=== PATIENT | male | born 1980 | race Two or more races ===

== ENCOUNTER 2018-08-11 19:57 | Emergency (ER) | payer SELFPAY ==
[~2018-08-11] VITALS: Ht 167.6 cm; Wt 90.7 kg
[~2018-08-11 19:57] MED LIST: CLIN150C14 PO; HYDR-3164 PO
--- NOTE | 2018-08-11 20:25 | PHYS DOC ---
Past Medical History Past Medical History: No Pertinent History Past Surgical History: Other Additional Past Surgical Histo: LEFT WRIST Alcohol Use: Occasionally Drug Use: None Adult General Chief Complaint Chief Complaint: CHEST PAIN HPI HPI Patient is 37 yo male who presents with complaint of stabbing chest pain since 1729. He reports his truck broke down and he was walking when the chest pain suddenly began. He describes the pain as stabbing pain in the right of his chest , down his right arm, and up the r side of the neck. He has never had anything like this before and did not take any medication for the pain. He admits to feeling as though his heart is racing, but denies shortness of breath, recent cold sx, abdominal pain, nausea, vomiting, diarrhea, or pain w/ urination. Pain is not worsened by deep breath or movement. He reports having high blood pressure but is not on medication, does not have a PCP, and does not follow with a retail sales manager. He is unsure of family medical history however he does think an uncle had heart surgery at a young age. Patient transported himself to ED but reports his girlfriend is available to give him a ride home. Review of Systems Review of Systems Constitutional: Denies fever or chills [] Eyes: Denies change in visual acuity, redness, or eye pain [] HENT: Denies nasal congestion or sore throat [] Respiratory: Denies cough or shortness of breath [] Cardiovascular: Admits to stabbing right sided chest pain. GI: Denies abdominal pain, nausea, vomiting, bloody stools or diarrhea [] : Denies dysuria or hematuria [] Musculoskeletal: Admits to back pain Integument: Denies rash or skin lesions [] Neurologic: Denies headache, focal weakness or sensory changes [] Endocrine: Denies polyuria or polydipsia [] Complete systems were reviewed and found to be within normal limits, except as documented in this note. Current Medications Current Medications Current Medications Medications (Trade) Dose Ordered Sig/Colin Start Time Stop Time Status Last Admin Dose Admin Aspirin (Stephanie Aspirin) 325 mg 1X ONCE 08/11/18 20:30 08/11/18 20:31 DC 08/11/18 20:37 325 MG Fentanyl Citrate (Fentanyl 2ml Vial) 50 mcg 1X ONCE 08/11/18 21:00 08/11/18 21:01 DC 08/11/18 20:37 50 MCG Info (CONTRAST GIVEN -- Rx MONITORING) 1 each PRN DAILY PRN 08/11/18 21:00 08/11/18 23:16 DC Iohexol (Omnipaque 350 Mg/ml) 100 ml 1X ONCE 08/11/18 21:30 08/11/18 21:31 DC 08/11/18 21:08 100 ML Lorazepam (Ativan) 0.5 mg 1X ONCE 08/11/18 22:00 08/11/18 22:01 DC 08/11/18 21:42 0.5 MG Sodium Chloride 1,000 ml @ 1,000 mls/hr 1X ONCE 08/11/18 20:30 08/11/18 21:29 DC 08/11/18 20:37 1,000 MLS/HR Allergies Allergies Allergies Coded Allergies Type Severity Reaction Last Updated Verified No Known Drug Allergies 02/08/16 No Physical Exam Physical Exam Constitutional: Well developed, well nourished, no acute distress, non-toxic appearance, texting on phone [] HENT: Normocephalic, atraumatic, bilateral external ears normal, oropharynx moist, no oral exudates, nose normal. [] Eyes: EOMI, conjunctiva normal, no discharge. [] Neck: Normal range of motion, no tenderness, supple, no stridor. [] Cardiovascular:Heart rate regular rhythm, no murmur, chest nontender to palpation [] Lungs & Thorax: Bilateral breath sounds clear to auscultation [] Abdomen: Bowel sounds normal, soft, no tenderness, no masses, no pulsatile masses. [] Skin: Warm, dry, no erythema, no rash. Tattoos present bl forearms.[] Back: No tenderness Extremities: No tenderness, no cyanosis, no clubbing, ROM intact, no edema. Radial pulses 2/4 and equal. Neurologic: Alert and oriented X 3, normal motor function, normal sensory function, no focal deficits noted. [] Psychologic: Affect normal, judgement normal, mood normal. [] Current Patient Data Vital Signs Vital Signs Date Time Temp Pulse Resp B/P (MAP) Pulse Ox O2 Delivery O2 Flow Rate FiO2 08/11/18 22:37 81 18 140/65 (90) 100 Room Air 08/11/18 19:57 98.1 98.1 Lab Values Laboratory Tests Test 08/11/18 20:07 08/11/18 22:18 White Blood Count 10.3 x10^3/uL (4.0-11.0) Red Blood Count 5.16 x10^6/uL (4.30-5.70) Hemoglobin 15.8 g/dL (13.0-17.5) Hematocrit 44.6 % (39.0-53.0) Mean Corpuscular Volume 87 fL (79-100) Mean Corpuscular Hemoglobin 31 pg (25-35) Mean Corpuscular Hemoglobin Concent 36 g/dL (31-37) Red Cell Distribution Width 13.4 % (11.5-14.5) Platelet Count 260 x10^3/uL (140-400) Neutrophils (%) (Auto) 69 % (31-73) Lymphocytes (%) (Auto) 23 % (24-48) L Monocytes (%) (Auto) 7 % (0-9) Eosinophils (%) (Auto) 1 % (0-3) Basophils (%) (Auto) 1 % (0-3) Neutrophils # (Auto) 7.1 x10^3uL (1.8-7.7) Lymphocytes # (Auto) 2.3 x10^3/uL (1.0-4.8) Monocytes # (Auto) 0.7 x10^3/uL (0.0-1.1) Eosinophils # (Auto) 0.1 x10^3/uL (0.0-0.7) Basophils # (Auto) 0.1 x10^3/uL (0.0-0.2) Prothrombin Time 12.4 SEC (11.7-14.0) Prothrombin Time INR 1.0 (0.8-1.1) PTT 25 SEC (24-38) Sodium Level 142 mmol/L (136-145) Potassium Level 4.0 mmol/L (3.5-5.1) Chloride Level 105 mmol/L (98-107) Carbon Dioxide Level 29 mmol/L (21-32) Anion Gap 8 (6-14) Blood Urea Nitrogen 17 mg/dL (8-26) Creatinine 1.2 mg/dL (0.7-1.3) Estimated GFR (Cockcroft-Gault) 68.9 BUN/Creatinine Ratio 14 (6-20) Glucose Level 101 mg/dL (70-99) H Calcium Level 9.4 mg/dL (8.5-10.1) Magnesium Level 2.0 mg/dL (1.8-2.4) Total Bilirubin 0.2 mg/dL (0.2-1.0) Aspartate Amino Transferase (AST) 22 U/L (15-37) Alanine Aminotransferase (ALT) 31 U/L (16-63) Alkaline Phosphatase 65 U/L (46-116) Creatine Kinase 184 U/L (39-308) Creatine Kinase MB (Mass) 1.2 ng/mL (0.0-3.6) Creatine Kinase MB Relative Index 0.7 % (0-4) Troponin I Quantitative < 0.017 ng/mL (0.000-0.055) < 0.017 ng/mL (0.000-0.055) MN-Wig-P-Type Natriuretic Peptide 10 pg/mL (0-124) Total Protein 8.1 g/dL (6.4-8.2) Albumin 4.2 g/dL (3.4-5.0) Albumin/Globulin Ratio 1.1 (1.0-1.7) Lipase 321 U/L (73-393) Laboratory Tests 08/11/18 20:07 Laboratory Tests 08/11/18 20:07 EKG EKG [] Interpretation Time: @2006; HR 81 BPM, normal sinus rhythm. Radiology/Procedures Radiology/Procedures [] Impressions: PROCEDURE: CT ANGIOGRAPHY CHEST Exam performed: CT pulmonary angiogram of the chest with contrast. Date: 08/11/2018. Comparison: None available Indication: Pleuritic chest pain Technique: Contiguous helical acquisitions are obtained through the chest during intravenous administration of [ 100 ] cc of [ Omnipaque 350 ] . [Sagittal and coronal reformatted images and ] MIP images were obtained and reviewed Findings: The structures at the thoracic inlet including both lobes of the thyroid gland appear normal. Pulmonary arterial opacification is adequate to evaluate for pulmonary embolus. There is no evidence for pulmonary embolism. The heart is normal in size. No pericardial effusion is seen. No mediastinal or hilar lymphadenopathy is seen. No infiltrates or pleural effusions are seen. No pulmonary nodules are detected. Upper abdominal structures appear unremarkable. Osseous structures appear intact. Impression: 1. Study is negative for pulmonary embolism. No additional abnormality seen. PQRS Compliance Statement: One or more of the following individualized dose reduction techniques were utilized for this examination: 1. Automated exposure control 2. Adjustment of the mA and/or kV according to patient size 3. Use of iterative reconstruction technique Electronically signed by: Makeda Torres MD (08/11/2018 9:49 PM) [facility] Course & Med Decision Making Course & Med Decision Making Patient is 37 yo male smoker who presents with complaint of stabbing chest pain that began at 1730 while he was walking. He has been told he has high blood pressure but is not on medication and does not follow with any physicians. On physical exam he is resting comfortably in bed, afebrile, not tachycardic, but complaining of stabbing L sided chest pain. The rest of physical exam was unremarkable. Labs were WNL, including negative initial troponin. EKG NSR at 81 bpm. Patient administered aspirin and fentanyl for chest pain with moderate symptomatic relief. CT angio negative for PE. Following CT patient 's girlfriend arrived and was crying in the room at bedside. Around the same time, patient reported he was very cold, began shaking, and HR became elevated. He denied trouble breathing or skin irritation. Patient was administered ativan with complete cessation of symptoms and HR returned to 80s. Although it is possible the patient had a reaction to the dye, we feel the patient had Dragon Disclaimer Dragon Disclaimer This electronic medical record was generated, in whole or in part, using a voice recognition dictation system. Departure Departure Impression: Primary Impression: Chest pain Disposition: HOME, SELF-CARE Condition: STABLE Referrals: NO PCP (PCP) MADINA BELTRAN MD Patient Instructions: Chest Pain (Nonspecific), [id number] Problem Qualifiers Primary Impression: Chest pain Chest pain type: unspecified Qualified Codes: R07.9 - Chest pain, unspecified MINH FLORES DO Aug 11, 2018 20:25
[2018-08-11 20:26] LABS: BASO # 0.1 x10^3/uL (0.0-0.2); BASO % 1 % (0-3); EOS # 0.1 x10^3/uL (0.0-0.7); EOS % 1 % (0-3); HEMATOCRIT 44.6 % (39.0-53.0); HEMOGLOBIN 15.8 g/dL (13.0-17.5); LYMPH # 2.3 x10^3/uL (1.0-4.8); LYMPH % 23 % (24-48); MEAN CORPUSCULAR HEMOGLOBIN 31 pg (25-35); MEAN CORPUSCULAR HGB CONC 36 g/dL (31-37); MEAN CORPUSCULAR VOLUME 87 fL (79-100); MONO # 0.7 x10^3/uL (0.0-1.1); MONO % 7 % (0-9); NEUT # 7.1 x10^3uL (1.8-7.7); NEUT % 69 % (31-73); PLATELET COUNT 260 x10^3/uL (140-400); RED BLOOD COUNT 5.16 x10^6/uL (4.30-5.70); RED CELL DISTRIBUTION WIDTH 13.4 % (11.5-14.5); WHITE BLOOD COUNT 10.3 x10^3/uL (4.0-11.0)
[2018-08-11] MEDS ORDERED: IV NORMAL SALINE 1000ML BAG 1,000 ML IV ONE (20:30)
[2018-08-11] MEDS ORDERED: ASPIRIN 325 MG TABLET PO ONE (20:30)
[2018-08-11 20:37] LABS: PROTHROMBIN TIME PATIENT 12.4 SEC (11.7-14.0)
[2018-08-11 20:38] LABS: CALCIUM 9.4 mg/dL (8.5-10.1); CREATININE 1.2 mg/dL (0.7-1.3); GFR 68.9
[2018-08-11 20:48] LABS: ALBUMIN 4.2 g/dL (3.4-5.0); ALBUMIN/GLOBULIN RATIO 1.1 (1.0-1.7); TOTAL BILIRUBIN 0.2 mg/dL (0.2-1.0); TOTAL PROTEIN 8.1 g/dL (6.4-8.2)
[2018-08-11] MEDS ORDERED: CONTRAST GIVEN. MC PRN (21:00)
[2018-08-11] MEDS ORDERED: fentaNYL PF VIAL 100 MCG/2 ML VIAL IV ONE (21:00)
[2018-08-11] MEDS ORDERED: IOHEXOL 350 MG/ML 100 ML VIAL. IV ONE (21:30)
--- NOTE | 2018-08-11 21:53 | RAD ---
Exam performed: CT pulmonary angiogram of the chest with contrast. Date: 08/11/2018. Comparison: None available Indication: Pleuritic chest pain Technique: Contiguous helical acquisitions are obtained through the chest during intravenous administration of [ 100 ] cc of [ Omnipaque 350 ] . [Sagittal and coronal reformatted images and ] MIP images were obtained and reviewed Findings: The structures at the thoracic inlet including both lobes of the thyroid gland appear normal. Pulmonary arterial opacification is adequate to evaluate for pulmonary embolus. There is no evidence for pulmonary embolism. The heart is normal in size. No pericardial effusion is seen. No mediastinal or hilar lymphadenopathy is seen. No infiltrates or pleural effusions are seen. No pulmonary nodules are detected. Upper abdominal structures appear unremarkable. Osseous structures appear intact. Impression: 1. Study is negative for pulmonary embolism. No additional abnormality seen. PQRS Compliance Statement: One or more of the following individualized dose reduction techniques were utilized for this examination: 1. Automated exposure control 2. Adjustment of the mA and/or kV according to patient size 3. Use of iterative reconstruction technique Electronically signed by: Makeda Torres MD (08/11/2018 9:49 PM) [facility]
[2018-08-11 22:37] VITALS: BP 140/65
--- NOTE | 2018-08-12 07:12 | EKG ---
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
== END 2018-08-11 23:08 | disposition home or self-care (01) ==
LOC: ER 19:57
DX: R07.89 Other chest pain (principal); R03.0 Elevated blood-pressure reading, without diagnosis of hypertension; M54.9 Dorsalgia, unspecified
CPT/HCPCS: 36415; 71275; 80053; 82553; 83690; 83735; 83880; 84484; 85025; 85610; 85730; 93005; 96374; 96375; 99284; J2060; J3010; J7030; Q9967

== ENCOUNTER 2019-11-08 13:35 | Emergency (ER) | payer SELFPAY ==
[~2019-11-08] VITALS: Ht 167.6 cm; Wt 89.5 kg
--- NOTE | 2019-11-08 14:38 | RAD ---
EXAM: Chest, single view. HISTORY: Cough. COMPARISON: 08/11/2018 FINDINGS: A frontal view of the chest is obtained. There is no infiltrate, pleural effusion or pneumothorax. The heart is normal in size. IMPRESSION: No acute pulmonary finding. Electronically signed by: Nicolette Sauer MD (11/08/2019 2:35 PM) [id number]
[2019-11-08 15:18] VITALS: BP 150/92
--- NOTE | 2019-11-08 15:56 | PHYS DOC ---
Past Medical History Past Medical History: Anxiety, Hypertension Past Surgical History: Other Additional Past Surgical Histo: LEFT WRIST Smoking Status: Current Every Day Smoker Alcohol Use: Occasionally Drug Use: None General Adult EDM: Chief Complaint: COUGH HPI: HPI: Patient is a 39 year old male presents to ER today for evaluation of cough and fever. Patient said he was in [place], at a gas station when another person cough on his face. Patient said he intermittently felt sick so he turned around low back home to [facility]. Since he has been having body aches fever and chill, cough so he came here for evaluation. Patient denies any chest pain, no abdominal pain, no trouble breathing, no headache. Patient denies any been exposed to anybody who tested positive for COVID-19. Review of Systems: Review of Systems: Constitutional: Positive for fever or chills. [] Eyes: Denies change in visual acuity. [] HENT: Denies nasal congestion or sore throat. [] Respiratory: Positive for cough, NO shortness of breath. [] Cardiovascular: Denies chest pain or edema. [] GI: Denies abdominal pain, nausea, vomiting, bloody stools or diarrhea. [] : Denies dysuria. [] Musculoskeletal: Denies back pain or joint pain. [] Integument: Denies rash. [] Neurologic: Denies headache, focal weakness or sensory changes. [] Endocrine: Denies polyuria or polydipsia. [] Lymphatic: Denies swollen glands. [] Psychiatric: Denies depression or anxiety. [] Heart Score: Risk Factors: Risk Factors: DM, Current or recent (<one month) smoker, HTN, HLP, family history of CAD, obesity. Risk Scores: Score 0 - 3: 2.5% MACE over next 6 weeks - Discharge Home Score 4 - 6: 20.3% MACE over next 6 weeks - Admit for Clinical Observation Score 7 - 10: 72.7% MACE over next 6 weeks - Early Invasive Strategies Allergies: Allergies: Allergies Coded Allergies Type Severity Reaction Last Updated Verified No Known Drug Allergies 02/08/16 No Physical Exam: PE: Constitutional: Well developed, well nourished, no acute distress, non-toxic appearance. [] HENT: Normocephalic, atraumatic, bilateral external ears normal, oropharynx moist, no oral exudates, nose normal. [] Eyes: PERRLA, EOMI, conjunctiva normal, no discharge. [] Neck: Normal range of motion, no tenderness, supple, no stridor. [] Cardiovascular:Heart rate regular rhythm, no murmur [] Lungs & Thorax: Bilateral breath sounds clear to auscultation [] Abdomen: Bowel sounds normal, soft, no tenderness, no masses, no pulsatile masses. [] Skin: Warm, dry, no erythema, no rash. [] Back: No tenderness, no CVA tenderness. [] Extremities: No tenderness, no cyanosis, no clubbing, ROM intact, no edema. [] Neurologic: Alert and oriented X 3, normal motor function, normal sensory function, no focal deficits noted. [] Psychologic: Affect normal, judgement normal, mood normal. [] Current Patient Data: Vital Signs: Vital Signs Date Time Temp Pulse Resp B/P (MAP) Pulse Ox O2 Delivery O2 Flow Rate FiO2 11/08/19 14:33 98.7 79 18 144/79 (100) 97 Room Air 98.7 EKG: EKG: EKG was done at 1424, heart rate of 75 beats per minute, normal sinus rhythm, no STEMI. [] Radiology/Procedures: Radiology/Procedures: [][facility] [address] [place], [place] [id number] IMAGING REPORT Signed PATIENT: ROEL TALLEYACCOUNT: [id number] : 1980 LOCATION: ER AGE: 39 SEX: M EXAM STATUS: REG ER ORD. PHYSICIAN: TJ TAN DO REASON: COUGH, SOA PROCEDURE: CHEST AP ONLY EXAM: Chest, single view. HISTORY: Cough. COMPARISON: 08/11/2018 FINDINGS: A frontal view of the chest is obtained. There is no infiltrate, pleural effusion or pneumothorax. The heart is normal in size. IMPRESSION: No acute pulmonary finding. Electronically signed by: Nicolette Sauer MD (11/08/2019 2:35 PM) [id number] DICTATED and SIGNED BY: NICOLETTE SAUER MD DATE: 11/08/19 1435 Course & Med Decision Making: Course & Med Decision Making COVID-19 CRITERIA: The patient was evaluated during the global COVID-19 pandemic, and that diagnosis was suspected/considered upon their initial presentation. Their evaluation, treatment and testing was consistent with current guidelines for patients who present with complaints or symptoms that may be related to COVID-19. Pertinent Labs and Imaging studies reviewed. (See chart for details) Patient is a 39-year-old male who was evaluated in the ER for upper restaurant infection, he worried about the exposure to the new coronavirus however he has no fever, chest x-ray normal his vitals are normal, he does not meet criteria to be tested at this time. Patient can be follow-up with hIS family doctor for outpatient evaluation and treatment. Dragon Disclaimer: Dragon Disclaimer: This electronic medical record was generated, in whole or in part, using a voice recognition dictation system. Departure Departure Impression: Primary Impression: Viral syndrome Disposition: 01 HOME, SELF-CARE Condition: STABLE Referrals: NO PCP (PCP) follow up with your doctor as needed Patient Instructions: Viral Syndrome Additional Instructions: Thank you for visiting [facility]. We appreciate you trusting us with your care. If any additional problems come up please don't hesitate to return to visit us. Follow up with your primary care provider so they can plan additional care if needed and know about the problem that you had today. If symptoms worsen come back to the Emergency Department. Any concerning symptoms that start such as chest pain, shortness of air, weakness or numbness on one si de of the body, running high fevers or any other concerning symptoms return to the ER. You have a viral syndrome which may include symptoms like muscle aches, fevers, chills, runny nose, cough, sneezing, sore throat, nausea, vomiting, or diarrhea. One of the potential viruses that you may have is SARS-CoV-2, the virus that causes COVID-19, also known as the Coronavirus. You are just as likely to have a different viral infection such as the common cold, flu, etc. Most patients with the Coronavirus have mild symptoms and recover on their own. Resting, staying hydrated, and sleep based on known cases can be helpful. As of todays visit, you are well enough to go home and treat your symptoms with oral fluids and over the counter medications. Coronavirus testing is not performed on most people with mild symptoms who are being discharged from the emergency department. If Coronavirus testing was performed today the results will not be available for possibly up to 3-4 days. If your result is positive you will be contacted. Please follow the following precautions at home: 1. Stay home except to get medical care. 2. As advised by the CDC, we recommend that you stay in your home and minimize contact with other people. We do not want you to spread the infection. 3. Those who are older or have significant medical issues may have more severe symptoms from this infection. We recommend self-isolation FOR AT LEAST 7 DAYS after your 1st day of symptoms. AFTER you feel better please wait AT LEAST ANOTHER WEEK before returning to regular activities and being around other people. 4. IF you become sicker and have difficulty breathing, chest pain, are unable to eat/drink, severe vomiting, diarrhea, or weakness you may need to return to the Emergency Department. 5. You should restrict activities outside of your home, except for getting medical care. DO NOT go to work, school, or public areas. Avoid using public transportation, ride sharing, or taxis. 6. Separate yourself from other people in your home. You should use a separate bathroom if possible. 7. Avoid sharing personal household items such as dishes, cups, eating utensils, towels, etc. 8. Clean all high touch surfaces every day (door knobs, counter tops, etc). Use a household cleaning spray or wipe per label instructions. 9. Clean your hands often. Wash your hands with soap and water for at least 20 seconds. 10. Cover your mouth and nose when you cough or sneeze. 11. Throw used tissues in the trash and immediately wash your hands. For additional resources please visit the CDC website or the [place] [facility] ([phone]). COVID-19 Assessment: COVID-19 Patient Risks: Age 65 or older: No Sign of co-morbidity: No Exp to person + for COVID: No Exp to PUI: No Travel from affected area: Yes Lower respiratory symptoms: No Fever: No Other: No PPE Use: Full PPE with N95 mask or PAPR: Yes (N95 MASK) TJ TAN DO Nov 08, 2019 15:56
--- NOTE | 2019-11-08 17:51 | EKG ---
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
== END 2019-11-08 16:03 | disposition home or self-care (01) ==
LOC: ER 13:35
DX: B34.9 Viral infection, unspecified (principal); I10 Essential (primary) hypertension; F17.200 Nicotine dependence, unspecified, uncomplicated
CPT/HCPCS: 71045; 93005; 99283